=== PATIENT | male | born 1980 | race Two or more races ===

== ENCOUNTER 2024-01-05 16:53 | Emergency (ER) | payer BC, OTHER ==
[~2024-01-05] VITALS: Ht 170.2 cm; Wt 76.3 kg
[2024-01-05 17:23] LABS: Basophils # (auto) 0 10 ^3/uL (0-0.2); Basophils % (auto) 0.5 % (0.0-2.0); Eosinophils # (auto) 0.2 10 ^3/uL (0-0.8); Eosinophils % (auto) 2.7 % (0.0-7.0); Hematocrit 41.5 % (41.0-53.0); Hemoglobin 13.9 g/dL (13.5-17.5); Lymphocytes % (auto) 33.4 % (10.0-50.0); Mean Corpuscular Hemoglobin 31.4 pg (28.0-32.0); Mean Corpuscular Hgb Conc. 33.5 g/dL (32.0-36.0); Mean Corpuscular Volume 93.5 fL (80.0-100.0); Monocytes # (auto) 0.6 10 ^3/uL (0-1.3); Monocytes % (auto) 9.7 % (0.0-12.0); Neutrophils # (auto) 3.2 10 ^3/uL (1.6-8.6); Neutrophils % (auto) 53.7 % (37.0-80.0); Nucleated Red Blood Cells % 0.1 %; Red Blood Cells 4.44 10^6/uL (4.5-5.90); Red Cell Distribution Width 13.3 % (11.8-14.3); White Blood Cell 5.9 10^3/uL (4.4-10.8)
[2024-01-05 17:35] LABS: Chloride 107 mmol/L (98-107); Potassium 4.4 mmol/L (3.5-5.1); Sodium 140 mmol/L (136-145)
[2024-01-05 17:36] LABS: Anion Gap 2 (5-15); Carbon Dioxide 31 mmol/L (20-30)
[2024-01-05 17:37] LABS: Calcium 9.8 mg/dL (8.5-10.1)
[2024-01-05 17:41] LABS: Glucose 91 mg/dL (74-106)
[2024-01-05 17:42] LABS: BUN/Creatinine Ratio 18.6 (10.0-20.0); Blood Urea Nitrogen 19 mg/dL (9-23)
[2024-01-05 19:35] LABS: Urine Bacteria None Seen /hpf (None Seen)
[2024-01-05 19:42] LABS: Urine Blood Negative /uL (Negative); Urine Clarity Clear (Clear); Urine Color Colorless (Yellow); Urine Protein, UAD Negative (Negative); Urine Specific Gravity 1.025 (1.001-1.035); Urine Urobilinogen Normal (Negative); Urine WBC 1 /hpf (0 - 3)
[2024-01-05 20:27] VITALS: BP 125/72; PULSE 54; RESP 18; TEMP 97.8; O2SAT 98
== END 2024-01-05 20:20 | disposition home or self-care (01) ==
LOC: ER 16:53
DX: R00.1 Bradycardia, unspecified (principal)
CPT/HCPCS: 36415; 80048; 81001; 83605; 84484; 85025; 93005